=== PATIENT | female | born 1990 | race Caucasian/White ===

== ENCOUNTER 2016-03-14 14:59 | Emergency (ER) | payer OTHER ==
[2016-03-14] MEDS ORDERED: NAPROXEN 250 MG TAB As Ordered ONE (17:23)
--- NOTE | 2016-03-14 18:00 | REPUSA ---
HISTORY: Trauma COMPARISON: TECHNIQUE: Multiple thin-section contiguous helically-acquired axially-displayed computed tomographic images of the cervical spine are obtained from skull base inferiorly through T1, with images filmed at soft tissue and bone window. {} ML of {} iodinated contrast material was infused intravenously, an d the images were repeated. 2D Sagittal and coronal reformatted images are performed. FINDINGS: There is normal cervical vertebral body height and alignment on this supine, non-weight bearing exam. Vertebral body mineralization is normal. All of the intervertebral disc spaces have normal height and contour. There is no herniated nucleus p ulposus, canal or foraminal stenosis. No abnormal enhancement. No paraspinal masses or collections. IMPRESSION: No fracture. Thank you for your kind referral of this patient.
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
== END 2016-03-14 18:16 | disposition home or self-care (01) ==
LOC: M ED 14:59
DX: S16.1XXA Strain of muscle, fascia and tendon at neck level, initial encounter (principal); V47.6XXA Car passenger injured in collision with fixed or stationary object in traffic accident, initial encounter; Y92.410 Unspecified street and highway as the place of occurrence of the external cause; Y93.89 Activity, other specified; Y99.8 Other external cause status; F32.9 Major depressive disorder, single episode, unspecified; F41.9 Anxiety disorder, unspecified; E03.9 Hypothyroidism, unspecified; Z79.899 Other long term (current) drug therapy; Z88.1 Allergy status to other antibiotic agents

== ENCOUNTER 2020-07-13 11:50 | Emergency (ER) | payer OTHER ==
[~2020-07-13] VITALS: Ht 160 cm; Wt 120.8 kg
[2020-07-13] MEDS ORDERED: THERTAB52 PO (11:57)
[2020-07-13] MEDS ORDERED: CORTCRE (12:25)
[2020-07-13] MEDS ORDERED: PRED5PAK PO (12:25)
[2020-07-13] MEDS ORDERED: BENA25CA4 PO (12:25)
[2020-07-13] MEDS ORDERED: CEPH500C PO (12:37)
[2020-07-13 13:04] VITALS: BP 108/75
[2020-07-16 13:08] LABS: Lyme Disease IgG/IgM Antibodie <0.91 ISR (0.00-0.90); Lyme Disease IgM Ab Quantitati <0.80 index (0.00-0.79)
== END 2020-07-13 13:07 | disposition home or self-care (01) ==
LOC: M ED 11:50
DX: L03.114 Cellulitis of left upper limb (principal); S50.862A Insect bite (nonvenomous) of left forearm, initial encounter; S90.861A Insect bite (nonvenomous), right foot, initial encounter; S90.862A Insect bite (nonvenomous), left foot, initial encounter; Z79.52 Long term (current) use of systemic steroids; Z79.899 Other long term (current) drug therapy; Z88.1 Allergy status to other antibiotic agents; Z98.84 Bariatric surgery status; Y92.9 Unspecified place or not applicable; Y93.9 Activity, unspecified; Y99.9 Unspecified external cause status; W57.XXXA Bitten or stung by nonvenomous insect and other nonvenomous arthropods, initial encounter

== ENCOUNTER → 2021-06-05 | Outpatient (REF) | payer OTHER ==
[~2021-06-05] MED LIST: BENA25CA4 PO; CEPH500C PO; CORTCRE; PRED5PAK PO; THERTAB52 PO
[2021-06-05 17:51] LABS: INFLUENZA A AMPLIFICATION NEGATIVE (NEGATIVE); INFLUENZA B AMPLIFICATION NEGATIVE (NEGATIVE)
== END ==
LOC: M LAB REF 16:12
PROVIDERS: ATTEND Physician Assistant
DX: R52 Pain, unspecified (principal); K29.00 Acute gastritis without bleeding; R53.83 Other fatigue

== ENCOUNTER 2022-03-03 11:00 | Emergency (ER) | payer OTHER ==
[~2022-03-03] VITALS: Ht 157.5 cm; Wt 127.3 kg
[2022-03-03] MEDS ORDERED: BUPR-69 (11:29)
[2022-03-03] MEDS ORDERED: SERT25TA21 (11:29)
[2022-03-03] MEDS ORDERED: METF500T13 (11:29)
[2022-03-03] MEDS ORDERED: SYNT100T (11:29)
[2022-03-03] MEDS ORDERED: ERGO500029 (11:29)
[2022-03-03 12:17] LABS: BASO % 0.3 % (0.0-1.0); EOS # 0.1 10^3/uL (0.0-0.5); EOS % 0.8 % (0.0-3.0); HEMATOCRIT 41.6 % (36.0-47.0); LYMPH # 1.5 10^3/uL (1.5-5.0); LYMPH % 22.1 % (24.0-44.0); MEAN CORPUSCULAR HEMOGLOBIN 26.3 pg (27.0-33.0); MEAN CORPUSCULAR HGB CONC 31.3 g/dl (32.0-36.5); MONO # 0.5 10^3/uL (0.0-0.8); MONO % 6.9 % (2.0-8.0); NEUTROPHILS # 4.6 10^3/uL (1.5-8.5); NEUTROPHILS % 69.6 % (36.0-66.0); PLATELET COUNT, AUTOMATED 285 10^3/uL (150-450); RED BLOOD COUNT 4.95 10^6/uL (4.00-5.40); WHITE BLOOD COUNT 6.7 10^3/uL (4.0-10.0)
[2022-03-03 12:42] LABS: ALBUMIN 3.9 G/DL (3.2-5.2); ALKALINE PHOSPHATASE 87 U/L (46-116); ALT/SGPT 17 U/L (7.0-40); AST/SGOT 19 U/L (<34); BILIRUBIN,TOTAL 0.6 MG/DL (0.3-1.2); BLOOD UREA NITROGEN 9 MG/DL (9-23); CALCIUM LEVEL 9.4 MG/DL (8.5-10.1); CARBON DIOXIDE LEVEL 26 MMOL/L (20-31); CHLORIDE LEVEL 107 MMOL/L (98-107); CREATININE FOR GFR 0.73 MG/DL (0.55-1.30); GLOMERULAR FILTRATION RATE > 60.0 (>60); GLUCOSE, FASTING 112 MG/DL (60-100); POTASSIUM SERUM 4.4 MMOL/L (3.5-5.1); SODIUM LEVEL 139 MMOL/L (136-145); TOTAL PROTEIN 7.3 G/DL (5.7-8.2)
[2022-03-03 12:43] LABS: THYROID STIMULATING HORMONE 4.817 uIU/ML (0.55-4.78)
[2022-03-03 14:50] LABS: FREE T3 3.2 PG/ML (2.3-4.2)
[2022-03-03 14:51] LABS: FREE T4 1.15 NG/DL (0.89-1.76)
[2022-03-03 16:17] VITALS: BP 113/62
[2022-03-03] MEDS ORDERED: HOLTER MONITOR XX (17:07)
== END 2022-03-03 17:17 | disposition home or self-care (01) ==
LOC: M ED 11:00
DX: R00.2 Palpitations (principal); R94.31 Abnormal electrocardiogram [ECG] [EKG]; F41.9 Anxiety disorder, unspecified; F32.A Depression, unspecified; E28.2 Polycystic ovarian syndrome; Z88.1 Allergy status to other antibiotic agents; Z88.8 Allergy status to other drugs, medicaments and biological substances; Z98.84 Bariatric surgery status

== ENCOUNTER 2023-05-09 17:07 | Emergency (ER) | payer OTHER ==
[~2023-05-09] VITALS: Ht 160 cm; Wt 113.3 kg
[~2023-05-09 17:07] MED LIST changes: +BUPR-69; -CORTCRE; +ERGO500029; +HOLTER MONITOR XX; +HYDR28CR42; +METF500T13; +SERT25TA21; +SYNT100T
[2023-05-09 18:11] LABS: HEMATOCRIT 41.3 % (36.0-47.0); HEMOGLOBIN 13.7 g/dl (12.0-15.5); MEAN CORPUSCULAR HEMOGLOBIN 28.6 pg (27.0-33.0); MEAN CORPUSCULAR HGB CONC 33.2 g/dl (32.0-36.5); MEAN CORPUSCULAR VOLUME 86.2 fl (80.0-96.0); PLATELET COUNT, AUTOMATED 183 10^3/uL (150-450); RED BLOOD COUNT 4.79 10^6/uL (4.00-5.40); WHITE BLOOD COUNT 2.3 10^3/uL (4.0-10.0)
[2023-05-09 18:12] LABS: BASO % 0.9 % (0.0-1.0); LYMPH # 0.5 10^3/uL (1.5-5.0); LYMPH % 19.9 % (24.0-44.0); MONO # 0.5 10^3/uL (0.0-0.8); MONO % 20.8 % (2.0-8.0); NEUTROPHILS # 1.3 10^3/uL (1.5-8.5)
[2023-05-09] MEDS ORDERED: OMEP40CA5 (18:13)
[2023-05-09] MEDS ORDERED: NYST10006 (18:13)
[2023-05-09] MEDS ORDERED: FLUO20CA22 (18:13)
[2023-05-09] MEDS ORDERED: FLUO56GE6 (18:13)
[2023-05-09] MEDS ORDERED: FLUTISP (18:13)
[2023-05-09 18:36] LABS: ALBUMIN 2.9 G/DL (3.2-5.2); BILIRUBIN,DIRECT 0.2 MG/DL (<0.4); BILIRUBIN,TOTAL 0.4 MG/DL (0.3-1.2)
[2023-05-09] MEDS: GASTROGRAFIN SOLUTION 30ML PO SCH (18:50)
[2023-05-09] MEDS: ONDANSETRON 4MG 2ML VIAL IV ONE (18:54)
[2023-05-09] MEDS: NS 1,000 ML IV ONE (18:55)
[2023-05-09] MEDS ORDERED: ISOVUE-370 76% 100ML VIAL As Ordered ONE (19:48)
[2023-05-09] MEDS ORDERED: ONDA4TAB6 PO (21:20)
[2023-05-09 21:28] VITALS: BP 121/58; TEMP 100; O2SAT 100
[2023-05-09] MEDS: ONDANSETRON 4MG ORAL DISINTEGRATING TAB PO ONE (21:32)
== END 2023-05-09 21:34 | disposition home or self-care (01) ==
LOC: M ED 17:07
DX: K52.9 Noninfective gastroenteritis and colitis, unspecified (principal); E11.9 Type 2 diabetes mellitus without complications; F41.9 Anxiety disorder, unspecified; F32.A Depression, unspecified; Z98.84 Bariatric surgery status; Z88.1 Allergy status to other antibiotic agents; Z90.49 Acquired absence of other specified parts of digestive tract; Z79.83 Long term (current) use of bisphosphonates; Z79.899 Other long term (current) drug therapy; Z79.2 Long term (current) use of antibiotics
CPT/HCPCS: 74177; 80047; 80076; 83690; 84702; 85025; 96361; 96374; 99284; J2405; Q9963; Q9967

== ENCOUNTER → 2023-08-11 | Outpatient (REF) | payer OTHER ==
[~2023-08-11] MED LIST changes: +FLUO-365; +FLUO56GE6; +FLUTISP; +NYST10006; +OMEP40CA5; +ONDA-282 PO
[2023-08-11 17:31] LABS: APPEARANCE, URINE HAZY (CLEAR); BACTERIA, URINE AUTO 1+ (NEGATIVE); BILIRUBIN, URINE AUTO NEGATIVE (NEGATIVE); BLOOD, URINE BLOOD 1+ (NEGATIVE); COLOR, URINE YELLOW (YELLOW); GLUCOSE, URINE (UA) AUTO NEGATIVE (NEGATIVE); KETONE, URINE AUTO NEGATIVE (NEGATIVE); LEUKOCYTE ESTERASE, URINE AUTO NEGATIVE (NEGATIVE); MUCUS, URINE SMALL (NEGATIVE); NITRITE, URINE AUTO POSITIVE (NEGATIVE); PROTEIN, URINE AUTO NEGATIVE (NEGATIVE); RBC, URINE AUTO 6 /HPF (0-3); SPECIFIC GRAVITY URINE AUTO 1.014 (1.002-1.035); SQUAMOUS EPITHELIAL CELL UR AU 3 /HPF (0-6); WBC, URINE AUTO 0 /HPF (0-3)
== END ==
LOC: M LAB REF 16:15
PROVIDERS: ATTEND Physician Assistant
DX: N39.0 Urinary tract infection, site not specified (principal)